=== PATIENT | male | born 1985 | race Caucasian/White ===

== ENCOUNTER 2018-12-19 00:51 | Inpatient (IN) | payer BC, OTHER ==
--- NOTE | 2018-12-19 01:05 | HP ---
COWS - Scale Resting Pulse: 0= DC 80 or Below Sweatin=Flushed/Facial Moisture Restless Observation: 0= Sits Still Pupil Size: 0= Normal to Room Light Bone or Joint Aches: 4=Acute Joint/Muscle Pain Runny Nose/ Eye Tearin= Nasal Congestion GI Upset > 30mins: 2= Nausea/Diarrhea (diarrhea x 10) Tremor Observation: 4= Gross Tremor/Twitching Yawning Observation: 0= None Anxiety or Irritability: 2=Irritable/Anxious Goose Flesh Skin: 3=Piloerection COWS Score: 18 CIWA Score - Admission Criteria OASAS Guidelines: Admission for Medically Managed Detox: Requires at least one of the followin. CIWA greater than 12 2. Seizures within the past 24 hours 3. Delirium tremens within the past 24 hours 4. Hallucinations within the past 24 hours 5. Acute intervention needed for co occurring medical disorder 6. Acute intervention needed for co occurring psychiatric disorder 7. Severe withdrawal that cannot be handled at a lower level of care (continued vomiting, continued diarrhea, abnormal vital signs) requiring intravenous medication and/or fluids 8. Admission ROS [facility] Chief Complaint: Heroin withdrawal symptom Allergies/Adverse Reactions: Allergies Allergy/AdvReac Type Severity Reaction Status Date / Time No Known Allergies Allergy Verified 07/14/18 20:11 History of Present Illness: 33 years old male with a year of heroin dependence is seeking admission to detox. Patient has been in previous detox and reports insignificant period of sobriety. He has medical history of anxiety, depression and bronchial asthma. He denies suicide attempt and suicidal ideation at this time. Exam Limitations: No Limitations - Ebola screening Have you traveled outside of the country in the last 21 days: No Have you had contact with anyone from an Ebola affected area: No Have you been sick,other than usual withdrawal symptoms: No Do you have a fever: No - Review of Systems Constitutional: Chills, Malaise, Night Sweats EENT: reports: No Symptoms Reported, Sinus Pressure Respiratory: reports: No Symptoms reported Cardiac: reports: No Symptoms Reported GI: reports: No Symptoms Reported, Diarrhea, Nausea, Poor Appetite, Poor Fluid Intake, Abdominal cramping : reports: No Symptoms Reported Musculoskeletal: reports: Back Pain Integumentary: reports: Dryness, Flushing Neuro: reports: Headache, Tremors Endocrine: reports: No Symptoms Reported Hematology: reports: No Symptoms Reported Psychiatric: reports: Mood/Affect Appropiate, Orientated x3, Anxious, Depressed Other Systems: Reviewed and Negative Patient History - Patient Medical History Hx Anemia: No Hx Asthma: Yes (Albuterol, Spiriva, Brel) Hx Chronic Obstructive Pulmonary Disease (COPD): No Hx Cancer: No Hx Cardiac Disorders: No Hx Congestive Heart Failure: No Hx Hypertension: No Hx Hypercholesterolemia: No Hx Pacemaker: No HX Cerebrovascular Accident: No Hx Seizures: No Hx Dementia: No Hx Diabetes: No Hx Gastrointestinal Disorders: No Hx Liver Disease: No Hx Genitourinary Disorders: No Hx Sexually Transmitted Disorders: No Hx Renal Disease (ESRD): No Hx Thyroid Disease: No Hx Human Immunodeficiency Virus (HIV): No (2011) Hx Hepatitis C: No Hx Depression: Yes (VYBRID) Hx Suicide Attempt: No Hx Bipolar Disorder: No Hx Schizophrenia: No Other Medical History: ANXIETY - Xanax - Patient Surgical History Past Surgical History: Yes Hx Neurologic Surgery: No Hx Cataract Extraction: No Hx Cardiac Surgery: No Hx Lung Surgery: No Hx Breast Surgery: No Hx Abdominal Surgery: Yes (right inguinal hernia repair at age of 13 years) Hx Appendectomy: No Hx Cholecystectomy: No Hx Genitourinary Surgery: No Hx Section: No Hx Orthopedic Surgery: No Anesthesia Reaction: No - PPD History Previous Implant?: Yes Documented Results: Positive w/proof Implanted On Prior [facility] Admission?: Yes Date: 07/16/18 PPD to be Administered?: No - Reproductive History Patient is a Female of Child Bearing Age (11 -55 yrs old): No (MALE) - Smoking Cessation Smoking history: Current every day smoker Have you smoked in the past 12 months: No Aproximately how many cigarettes per day: 30 If you are a former smoker, when did you quit?: 1 YR Cigars Per Day: 0 Hx Chewing Tobacco Use: No Initiated information on smoking cessation: Yes 'Breaking Loose' booklet given: 12/19/18 Family Disease History - Family Disease History Family Disease History: Other: Father ( alcoholism ), Mother (RA, Crohn' s disease) Admission Physical Exam B[facility] - Physical General Appearance: Yes: Moderate Distress, Anxious HEENTM: Yes: EOMI, Normal ENT Inspection, Normal Voice, [place] Respiratory: Yes: Lungs Clear, Normal Breath Sounds, No Respiratory Distress Neck: Yes: Supple Breast: Yes: Breast Exam Deferred Cardiology: Yes: Regular Rhythm, Regular Rate Abdominal: Yes: Normal Bowel Sounds Genitourinary: Yes: Within Normal Limits Back: Yes: Normal Inspection Musculoskeletal: Yes: Within Normal Limits Extremities: Yes: Tremors Neurological: Yes: Alert, Normal Mood/Affect Integumentary: Yes: Warm - Diagnostic (1) Anxiety Current Visit: Yes Status: Chronic (2) Sedative dependence Current Visit: Yes Status: Acute (3) Seizure Current Visit: Yes Status: Acute (4) Asthma exacerbation Current Visit: Yes Status: Chronic Qualifiers: Asthma severity: moderate Asthma persistence: persistent Qualified Code(s ): J45.41 - Moderate persistent asthma with (acute) exacerbation (5) Asthma Current Visit: Yes Status: Chronic (6) Cocaine dependence Current Visit: No Status: Chronic Qualifiers: Substance use status: uncomplicated Qualified Code(s): F14.20 - Cocaine dependence, uncomplicated (7) Depressive disorder Current Visit: No Status: Chronic (8) Marijuana dependence Current Visit: Yes Status: Chronic (9) Opioid dependence with withdrawal Current Visit: Yes Status: Resolved Cleared for Admission [facility] - Detox or Rehab [facility] Level of Care: Medically Managed Detox Regimen/Protocol: Methadone Claeared for Rehab Admission: No S Breath Alcohol Content Breath Alcohol Content: 0 Vital Signs - Vital Signs Vital Signs Refused: No Temperature: 98.7 F Temperature Source: Oral Pulse Rate: 73 Respiratory Rate: 18 Blood Pressure: 130/93 BP Location: Left Arm Blood Pressure Position: Sitting - Height Height: 5 ft 11 in - Weight Weight: 180 lb Weight Measurement Method: Standing Scale Body Mass Index (BMI): 25.1 - Bowel Function Bowel Movement: Yes Urine Drug Screen - Test Device Lot Number: [id number] Expiration Date: 09/09/20 - Control Is Test Valid: Yes - Results Drug Screen Negative: No Urine Drug Screen Results: THC-Marijuana, OPI-Opiates, BZO-Benzodiazepines Inpatient Rehab Admission - Rehab Decision to Admit Inpatient rehab admission?: No
[2018-12-19] MEDS ORDERED: METHOCARBAMOL 500 MG TABLET PO PRN (01:20)
[2018-12-19] MEDS ORDERED: cloNIDine HCL 0.1 MG TABLET PO PRN ×2 (01:20→02:32)
[2018-12-19] MEDS ORDERED: MAG HYDROX/AL HYDROX/SIMETH 30 ML UNIT-DOSE CUP PO PRN (01:20)
[2018-12-19] MEDS ORDERED: MAGNESIUM CITRATE 300 ML BOTTLE PO PRN (01:20)
[2018-12-19] MEDS ORDERED: MENTHOL/PHENOL 1 EACH UD MM PRN (01:20)
[2018-12-19] MEDS ORDERED: IBUPROFEN 400 MG TABLET (FP) PO PRN (01:20)
[2018-12-19] MEDS ORDERED: NALOXONE HCL 0.4 MG/ML VIAL IVPUSH PRN (01:20)
[2018-12-19] MEDS ORDERED: BISMUTH SUBSALICYLATE 524 MG/30 ML UD PO PRN (01:20)
[2018-12-19] MEDS ORDERED: MAGNESIUM HYDROX 2400MG/30ML ORAL SUSPENSION 30 ML CUP PO PRN (01:20)
[2018-12-19] MEDS ORDERED: ACETAMINOPHEN 325 MG TABLET (FP) PO PRN (01:20)
[2018-12-19] MEDS ORDERED: ALBUTEROL SO4 8 GM HFA INHALER IH PRN (01:24)
[2018-12-19 01:33] VITALS: BMI 25.1
--- NOTE | 2018-12-19 02:31 | HP ---
COWS - Scale Resting Pulse: 0= ID 80 or Below Sweatin=Flushed/Facial Moisture Restless Observation: 0= Sits Still Pupil Size: 0= Normal to Room Light Bone or Joint Aches: 4=Acute Joint/Muscle Pain Runny Nose/ Eye Tearin= Nasal Congestion GI Upset > 30mins: 2= Nausea/Diarrhea (diarrhea x 10) Tremor Observation: 4= Gross Tremor/Twitching Yawning Observation: 0= None Anxiety or Irritability: 2=Irritable/Anxious Goose Flesh Skin: 3=Piloerection COWS Score: 18 CIWA Score - Admission Criteria OASAS Guidelines: Admission for Medically Managed Detox: Requires at least one of the followin. CIWA greater than 12 2. Seizures within the past 24 hours 3. Delirium tremens within the past 24 hours 4. Hallucinations within the past 24 hours 5. Acute intervention needed for co occurring medical disorder 6. Acute intervention needed for co occurring psychiatric disorder 7. Severe withdrawal that cannot be handled at a lower level of care (continued vomiting, continued diarrhea, abnormal vital signs) requiring intravenous medication and/or fluids 8. Admission ROS [facility] Allergies/Adverse Reactions: Allergies Allergy/AdvReac Type Severity Reaction Status Date / Time No Known Allergies Allergy Verified 12/19/18 02:30 - Ebola screening Have you traveled outside of the country in the last 21 days: No Have you had contact with anyone from an Ebola affected area: No Have you been sick,other than usual withdrawal symptoms: No Do you have a fever: No Patient History - Patient Medical History Hx Anemia: No Hx Asthma: Yes (Albuterol, Spiriva, Brel) Hx Chronic Obstructive Pulmonary Disease (COPD): No Hx Cancer: No Hx Cardiac Disorders: No Hx Congestive Heart Failure: No Hx Hypertension: No Hx Hypercholesterolemia: No Hx Pacemaker: No HX Cerebrovascular Accident: No Hx Seizures: No Hx Dementia: No Hx Diabetes: No Hx Gastrointestinal Disorders: No Hx Liver Disease: No Hx Genitourinary Disorders: No Hx Sexually Transmitted Disorders: No Hx Renal Disease (ESRD): No Hx Thyroid Disease: No Hx Human Immunodeficiency Virus (HIV): No (Negative 2011) Hx Hepatitis C: No Hx Depression: Yes (VYBRID) Hx Suicide Attempt: No Hx Bipolar Disorder: No Hx Schizophrenia: No Other Medical History: ANXIETY - Xanax - Patient Surgical History Past Surgical History: Yes Hx Neurologic Surgery: No Hx Cataract Extraction: No Hx Cardiac Surgery: No Hx Lung Surgery: No Hx Breast Surgery: No Hx Abdominal Surgery: Yes (right inguinal hernia repair at age of 13 years) Hx Appendectomy: No Hx Cholecystectomy: No Hx Genitourinary Surgery: No Hx Section: No Hx Orthopedic Surgery: No Anesthesia Reaction: No - PPD History Previous Implant?: Yes Documented Results: Positive w/proof Implanted On Prior [facility] Admission?: Yes Date: 07/16/18 - Smoking Cessation Smoking history: Current every day smoker Have you smoked in the past 12 months: No Aproximately how many cigarettes per day: 30 If you are a former smoker, when did you quit?: 1 YR Cigars Per Day: 0 Hx Chewing Tobacco Use: No Initiated information on smoking cessation: Yes 'Breaking Loose' booklet given: 12/19/18 - Substances Abused Heroin Route: Inhalation Frequency: Daily Amount used: 10 bags Age of first use: 33 Date of Last Use: 12/18/18 Family Disease History - Family Disease History Family Disease History: Other: Father ( alcoholism ), Mother (RA, Crohn' s disease) Admission Physical Exam BHS - Vital Signs Vital Signs: Vital Signs - 24 hr 12/19/18 01:58 Temperature 98.7 F Pulse Rate 73 Respiratory 18 Rate Blood Pressure 130/93 - Diagnostic (1) Anxiety Current Visit: Yes Status: Chronic (2) Sedative dependence Current Visit: Yes Status: Acute (3) Seizure Current Visit: Yes Status: Acute (4) Asthma exacerbation Current Visit: Yes Status: Chronic Qualifiers: Asthma severity: moderate Asthma persistence: persistent Qualified Code(s ): J45.41 - Moderate persistent asthma with (acute) exacerbation (5) Asthma Current Visit: Yes Status: Chronic (6) Cocaine dependence Current Visit: No Status: Chronic Qualifiers: Substance use status: uncomplicated Qualified Code(s): F14.20 - Cocaine dependence, uncomplicated (7) Depressive disorder Current Visit: No Status: Chronic (8) Marijuana dependence Current Visit: Yes Status: Chronic (9) Opioid dependence with withdrawal Current Visit: Yes Status: Resolved BHS Breath Alcohol Content Breath Alcohol Content: 0 Urine Drug Screen - Results Drug Screen Negative: No Urine Drug Screen Results: THC-Marijuana, OPI-Opiates, BZO-Benzodiazepines
[2018-12-19] MEDS ORDERED: METHADONE HCL 10 MG TABLET (FOR DETOX USE ONLY) PO ONE ×3 (02:40→23:00)
[2018-12-19] MEDS: hydrOXYzine PAMOATE 25 MG CAPSULE (FP) PO PRN ×3 (02:48→18:35)
[2018-12-19] MEDS: NICOTINE POLACRILEX 2 MG GUM BUC PRN ×3 (02:50→18:37)
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
[2018-12-19] MEDS: PRENATAL VITAMINS W/ FOLIC ACID TABLET (FP) PO SCH (10:09)
[2018-12-19] MEDS: NICOTINE 14 MG/24 HOURS TOPICAL PATCH TD SCH (10:12)
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
[2018-12-19] MEDS: QUEtiapine FUMARATE 100 MG TABLET (FP) PO SCH (22:11)
[2018-12-19] MEDS: MELATONIN 5 MG TABLETS PO PRN (22:11)
[2018-12-19] MEDS: THIAMINE HCL 100 MG TABLET (FP) PO SCH (22:11)
[2018-12-20] MEDS ORDERED: METHADONE HCL 10 MG TABLET (FOR DETOX USE ONLY) PO ONE (10:00)
[2018-12-20] MEDS ORDERED: METHADONE HCL 5 MG TABLET (FOR DETOX USE ONLY) PO ONE (10:00)
[2018-12-20] MEDS: PRENATAL VITAMINS W/ FOLIC ACID TABLET (FP) PO SCH (10:12)
[2018-12-20] MEDS: NICOTINE 14 MG/24 HOURS TOPICAL PATCH TD SCH (10:14)
[2018-12-20] MEDS: NICOTINE POLACRILEX 2 MG GUM BUC PRN ×2 (10:14→22:20)
[2018-12-20 12:38] LABS: HEMATOCRIT 43.6 % (35.4-49); HEMOGLOBIN 14.5 GM/dL (11.7-16.9); MCH 28.7 pg (25.7-33.7); MCHC 33.3 g/dl (32.0-35.9); MEAN CELL VOLUME 86.2 fl (80-96); MEAN PLT VOLUME 9.6 fl (7.5-11.1); PLATELET COUNT 227 K/MM3 (134-434); RBC 5.05 M/mm3 (4.00-5.60); RDW 14.7 % (11.9-15.9); WHITE BLOOD COUNT 8.5 K/mm3 (4.0-10.0)
[2018-12-20 12:49] LABS: ALBUMIN 3.3 g/dl (3.4-5.0); ALK PHOS 61 U/L (45-117); ANION GAP 3 MMOL/L (8-16); BILIRUBIN,TOTAL 0.2 mg/dL (0.2-1); BLOOD UREA NITROGEN 9 mg/dL (7-18); CALCIUM 8.9 mg/dL (8.5-10.1); CHLORIDE 106 mmol/L (98-107); CO2 30 mmol/L (21-32); CREATININE 1.2 mg/dL (0.55-1.3); GLUCOSE,RANDOM 84 mg/dL (74-106); POTASSIUM 4.5 mmol/L (3.5-5.1); SGOT/AST 15 U/L (15-37); SGPT/ALT 30 U/L (13-61); SODIUM 139 mmol/L (136-145); TOT PROT 6.2 g/dl (6.4-8.2)
--- NOTE | 2018-12-20 16:24 | PN ---
BHS COWS - Scale Resting Pulse: 0= [place] 80 or Below Sweatin= Chills/Flushing Restless Observation: 0= Sits Still Pupil Size: 1= Pupils >than Normal Bone or Joint Aches: 1= Mild Discomfort Runny Nose/ Eye Tearin= Nasal Congestion GI Upset > 30mins: 1= Stomach Cramp Tremor Observation of Outstretched Hands: 1= Tremor [place], Not Seen Yawning Observation: 2= >3x During Session Anxiety or Irritability: 1=Feels Anxious/Irritable Goose Flesh Skin: 0=Smooth Skin COWS Score: 9 BHS Progress Note (SOAP) Subjective: lower lip suture intact denies pain body ache joints hurt tremor sweating able to swallow and chew food Objective: 12/20/18 16:25 Vital Signs Temperature 97.9 F 12/20/18 13:30 Pulse Rate 100 H 12/20/18 13:30 Respiratory Rate 18 12/20/18 13:30 Blood Pressure 125/79 12/20/18 13:30 O2 Sat by Pulse Oximetry (%) Laboratory Last Values WBC 8.5 K/mm3 (4.0-10.0) 12/20/18 07:00 RBC 5.05 M/mm3 (4.00-5.60) 12/20/18 07:00 Hgb 14.5 GM/dL (11.7-16.9) 12/20/18 07:00 Hct 43.6 % (35.4-49) 12/20/18 07:00 MCV 86.2 fl (80-96) 12/20/18 07:00 MCH 28.7 pg (25.7-33.7) 12/20/18 07:00 MCHC 33.3 g/dl (32.0-35.9) 12/20/18 07:00 RDW 14.7 % (11.9-15.9) D 12/20/18 07:00 Plt Count 227 K/MM3 (134-434) 12/20/18 07:00 MPV 9.6 fl (7.5-11.1) 12/20/18 07:00 Sodium 139 mmol/L (136-145) 12/20/18 07:00 Potassium 4.5 mmol/L (3.5-5.1) 12/20/18 07:00 Chloride 106 mmol/L (98-107) 12/20/18 07:00 Carbon Dioxide 30 mmol/L (21-32) 12/20/18 07:00 Anion Gap 3 MMOL/L (8-16) L 12/20/18 07:00 BUN 9 mg/dL (7-18) 12/20/18 07:00 Creatinine 1.2 mg/dL (0.55-1.3) 12/20/18 07:00 Creat Clearance w eGFR > 60 (>60) 12/20/18 07:00 Random Glucose 84 mg/dL (74-106) 12/20/18 07:00 Calcium 8.9 mg/dL (8.5-10.1) 12/20/18 07:00 Total Bilirubin 0.2 mg/dL (0.2-1) 12/20/18 07:00 AST 15 U/L (15-37) 12/20/18 07:00 ALT 30 U/L (13-61) 12/20/18 07:00 Alkaline Phosphatase 61 U/L (45-117) 12/20/18 07:00 Total Protein 6.2 g/dl (6.4-8.2) L 12/20/18 07:00 Albumin 3.3 g/dl (3.4-5.0) L 12/20/18 07:00 RPR Titer Nonreactive (NONREACTIVE) 12/20/18 07:00 HIV 1&2 Antibody Screen Negative 12/19/18 08:30 HIV P24 Antigen Negative 12/19/18 08:30 lab noted Assessment: 12/20/18 16:25 withdrawal sx Plan: continue detox
[2018-12-20] MEDS: hydrOXYzine PAMOATE 25 MG CAPSULE (FP) PO PRN ×2 (16:34→22:19)
[2018-12-20] MEDS: ACETAMINOPHEN 325 MG TABLET (FP) PO PRN (21:05)
[2018-12-20] MEDS ORDERED: traZODone HCL 50 MG TABLET (FP) PO ONE (22:00)
[2018-12-20] MEDS: THIAMINE HCL 100 MG TABLET (FP) PO SCH (22:19)
[2018-12-20] MEDS: QUEtiapine FUMARATE 100 MG TABLET (FP) PO SCH (22:19)
[2018-12-20] MEDS: MELATONIN 5 MG TABLETS PO PRN (22:20)
[2018-12-21] MEDS ORDERED: METHADONE HCL 10 MG TABLET (FOR DETOX USE ONLY) PO ONE ×2 (10:00)
[2018-12-21] MEDS: PRENATAL VITAMINS W/ FOLIC ACID TABLET (FP) PO SCH (10:04)
[2018-12-21] MEDS: NICOTINE 14 MG/24 HOURS TOPICAL PATCH TD SCH (10:04)
[2018-12-21] MEDS: hydrOXYzine PAMOATE 25 MG CAPSULE (FP) PO PRN ×2 (10:06→17:25)
[2018-12-21] MEDS: ACETAMINOPHEN 325 MG TABLET (FP) PO PRN ×2 (10:07→17:26)
--- NOTE | 2018-12-21 16:09 | PN ---
BHS COWS - Scale Resting Pulse: 0= [place] 80 or Below Sweatin= Chills/Flushing Restless Observation: 0= Sits Still Pupil Size: 0= Normal to Room Light Bone or Joint Aches: 1= Mild Discomfort Runny Nose/ Eye Tearin= Nasal Congestion GI Upset > 30mins: 1= Stomach Cramp Tremor Observation of Outstretched Hands: 1= Tremor [place], Not Seen Yawning Observation: 0= None Anxiety or Irritability: 1=Feels Anxious/Irritable Goose Flesh Skin: 0=Smooth Skin COWS Score: 6 BHS Progress Note (SOAP) Subjective: feeling better less body aches mild tremor Objective: 12/21/18 16:09 Vital Signs Temperature 98.1 F 12/21/18 13:06 Pulse Rate 88 12/21/18 13:06 Respiratory Rate 18 12/21/18 13:06 Blood Pressure 136/89 12/21/18 13:06 O2 Sat by Pulse Oximetry (%) Laboratory Last Values WBC 8.5 K/mm3 (4.0-10.0) 12/20/18 07:00 RBC 5.05 M/mm3 (4.00-5.60) 12/20/18 07:00 Hgb 14.5 GM/dL (11.7-16.9) 12/20/18 07:00 Hct 43.6 % (35.4-49) 12/20/18 07:00 MCV 86.2 fl (80-96) 12/20/18 07:00 MCH 28.7 pg (25.7-33.7) 12/20/18 07:00 MCHC 33.3 g/dl (32.0-35.9) 12/20/18 07:00 RDW 14.7 % (11.9-15.9) D 12/20/18 07:00 Plt Count 227 K/MM3 (134-434) 12/20/18 07:00 MPV 9.6 fl (7.5-11.1) 12/20/18 07:00 Sodium 139 mmol/L (136-145) 12/20/18 07:00 Potassium 4.5 mmol/L (3.5-5.1) 12/20/18 07:00 Chloride 106 mmol/L (98-107) 12/20/18 07:00 Carbon Dioxide 30 mmol/L (21-32) 12/20/18 07:00 Anion Gap 3 MMOL/L (8-16) L 12/20/18 07:00 BUN 9 mg/dL (7-18) 12/20/18 07:00 Creatinine 1.2 mg/dL (0.55-1.3) 12/20/18 07:00 Creat Clearance w eGFR > 60 (>60) 12/20/18 07:00 Random Glucose 84 mg/dL (74-106) 12/20/18 07:00 Calcium 8.9 mg/dL (8.5-10.1) 12/20/18 07:00 Total Bilirubin 0.2 mg/dL (0.2-1) 12/20/18 07:00 AST 15 U/L (15-37) 12/20/18 07:00 ALT 30 U/L (13-61) 12/20/18 07:00 Alkaline Phosphatase 61 U/L (45-117) 12/20/18 07:00 Total Protein 6.2 g/dl (6.4-8.2) L 12/20/18 07:00 Albumin 3.3 g/dl (3.4-5.0) L 12/20/18 07:00 RPR Titer Nonreactive (NONREACTIVE) 12/20/18 07:00 HIV 1&2 Antibody Screen Negative 12/19/18 08:30 HIV P24 Antigen Negative 12/19/18 08:30 lab noted Assessment: 12/21/18 16:09 mild withdrawal sx Plan: continue detox
[2018-12-21] MEDS: NICOTINE POLACRILEX 2 MG GUM BUC PRN (17:29)
[2018-12-21] MEDS: QUEtiapine FUMARATE 100 MG TABLET (FP) PO SCH (22:17)
[2018-12-21] MEDS: THIAMINE HCL 100 MG TABLET (FP) PO SCH (22:17)
[2018-12-21] MEDS: MELATONIN 5 MG TABLETS PO PRN (22:17)
[2018-12-22] MEDS ORDERED: METHADONE HCL 5 MG TABLET (FOR DETOX USE ONLY) PO ONE (06:00)
[2018-12-22] MEDS ORDERED: METHADONE HCL 10 MG TABLET (FOR DETOX USE ONLY) PO ONE (10:00)
[2018-12-22] MEDS: NICOTINE 14 MG/24 HOURS TOPICAL PATCH TD SCH (10:18)
[2018-12-22] MEDS: ACETAMINOPHEN 325 MG TABLET (FP) PO PRN (10:18)
[2018-12-22] MEDS: PRENATAL VITAMINS W/ FOLIC ACID TABLET (FP) PO SCH (10:18)
[2018-12-22] MEDS: hydrOXYzine PAMOATE 25 MG CAPSULE (FP) PO PRN (13:47)
[2018-12-22 14:09] VITALS: BP 124/79; PULSE 84; TEMP 98.1
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
[2018-12-23] MEDS ORDERED: METHADONE HCL 5 MG TABLET (FOR DETOX USE ONLY) PO ONE (06:00)
== END 2018-12-22 14:19 | disposition home or self-care (01) | DRG 773 ==
LOC: YASAS 00:51 → Y3N 01:52
PROVIDERS: ADMIT Surgery; ATTEND Surgery
PROC: HZ2ZZZZ Detoxification Services for Substance Abuse Treatment (ICD-10-PCS; principal; 2018-12-19)
DX: F11.23 Opioid dependence with withdrawal (principal); F13.20 Sedative, hypnotic or anxiolytic dependence, uncomplicated; F14.20 Cocaine dependence, uncomplicated; F12.20 Cannabis dependence, uncomplicated; F17.210 Nicotine dependence, cigarettes, uncomplicated; F19.24 Other psychoactive substance dependence with psychoactive substance-induced mood disorder; F32.9 Major depressive disorder, single episode, unspecified; F41.9 Anxiety disorder, unspecified; J45.41 Moderate persistent asthma with (acute) exacerbation; G47.00 Insomnia, unspecified; Z86.69 Personal history of other diseases of the nervous system and sense organs; S01.511A Laceration without foreign body of lip, initial encounter; Y04.0XXA Assault by unarmed brawl or fight, initial encounter; Y93.9 Activity, unspecified; Y92.239 Unspecified place in hospital as the place of occurrence of the external cause
CPT/HCPCS: 36415; 80053; 85027; 86593; 87389; J0735

== ENCOUNTER 2018-12-19 11:15 | Emergency (ER) | payer BC ==
[2018-12-19 11:24] VITALS: BP 116/80; PULSE 93; TEMP 97.6; BMI 25.1
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
[2018-12-19] MEDS ORDERED: DIPHTH,PERTUSS(ACELL),TET 0.5 ML DISP.SYRIN IM ONE ×2 (12:17→12:58)
== END 2018-12-19 15:33 | disposition home or self-care (01) ==
LOC: JER 11:15
PROC: 3E0234Z Introduction of Serum, Toxoid and Vaccine into Muscle, Percutaneous Approach (ICD-10-PCS; principal; 2018-12-19)
PROC: 0CQ1XZZ Repair Lower Lip, External Approach (ICD-10-PCS; 2018-12-19)
DX: S01.511A Laceration without foreign body of lip, initial encounter (principal); K08.89 Other specified disorders of teeth and supporting structures; Y04.2XXA Assault by strike against or bumped into by another person, initial encounter; Y93.89 Activity, other specified; Y92.238 Other place in hospital as the place of occurrence of the external cause; Y99.8 Other external cause status; J45.909 Unspecified asthma, uncomplicated; F41.8 Other specified anxiety disorders; F32.9 Major depressive disorder, single episode, unspecified; F11.10 Opioid abuse, uncomplicated; F14.10 Cocaine abuse, uncomplicated
CPT/HCPCS: 12011; 90471; 90715; 99281-25

== ENCOUNTER 2018-12-23 09:14 | Emergency (ER) | payer BC ==
[2018-12-23 09:38] VITALS: BMI 23.7
[2018-12-23 10:27] LABS: HEMATOCRIT 44.3 % (35.4-49); HEMOGLOBIN 14.8 GM/dL (11.7-16.9); MCH 28.5 pg (25.7-33.7); MCHC 33.5 g/dl (32.0-35.9); MEAN PLT VOLUME 8.5 fl (7.5-11.1); PLATELET COUNT 247 K/MM3 (134-434); RBC 5.21 M/mm3 (4.00-5.60); RDW 14.2 % (11.9-15.9); WHITE BLOOD COUNT 7.9 K/mm3 (4.0-10.0)
--- NOTE | 2018-12-23 10:31 | PDOC ---
History of Present Illness - General Chief Complaint: Overdose Stated Complaint: OVER MEDICATION Time Seen by Provider: 12/23/18 09:57 - History of Present Illness Initial Comments: 12/23/18 10:17 Patient is a 33 y/o male with a history of cocaine abuse, heroin use, and asthma who presents for feelings of palpitations and feeling off. Patient reports he used cocaine last night around 6 pm and thinks he took an extra dose of seroquel and tamazapam. Patient reports he is anxious and feels like he is having palpitations. He also feels like everytime his heart beats he has a feeling of pain. He is mildly diaphoretic. He recently was discharged from detox yesterday after three days of methadone, patient reports he thinks he should have completed five days. Patient denies nausea, vomiting, diarrhea, or shortness of breath. 12/23/18 14:07 Labs WNL, mentation normal, stable for DC Past History - Past Medical History Allergies/Adverse Reactions: Allergies Allergy/AdvReac Type Severity Reaction Status Date / Time No Known Allergies Allergy Verified 12/23/18 09:34 Home Medications: Ambulatory Orders Quetiapine Fumarate [Seroquel] 100 tab HS 12/19/18 Temazepam 7.5 mg PO HS 12/19/18 Vilazodone HCl [Viibryd] 1 each PO DAILY 12/19/18 Albuterol Sulfate Inhaler - [Ventolin HFA Inhaler -] 2 inh PO PRN PRN #1 inhaler 12/21/18 Tiotropium [place] [Spiriva] 1 inh PO DAILY #1 cap.w.dev 12/21/18 Anemia: No Asthma: Yes Cancer: No Cardiac Disorders: No CVA: No COPD: No CHF: No Dementia: No Diabetes: No GI Disorders: No Disorders: No HTN: No Hypercholesterolemia: No Kidney Stones: No Liver Disease: No Psychiatric Problems: Yes (ANXIETY) Seizures: No Thyroid Disease: No - Surgical History Abdominal Surgery: Yes (right inguinal hernia repair at age of 13 years) Appendectomy: No Cardiac Surgery: No Cholecystectomy: No Lung Surgery: No Neurologic Surgery: No Orthopedic Surgery: No - Reproductive History Testicular Surgery: No - Suicide/Smoking/Psychosocial Hx Smoking Status: No Smoking History: Current every day smoker Have you smoked in the past 12 months: Yes Number of Cigarettes Smoked Daily: 20 If you are a former smoker, when did you quit?: 1 YR Cigars Per Day: 0 Information on smoking cessation initiated: No 'Breaking Loose' booklet given: 12/19/18 Hx Alcohol Use: No Drug/Substance Use Hx: Yes (cocaine) Substance Use Type: Cocaine, Heroin, Marijuana Hx Substance Use Treatment: No Review of Systems - Review of Systems Constitutional: Yes: Diaphoresis. No: Chills, Fever Respiratory: No: Cough, Wheezing Cardiac (ROS): Yes: Chest Pain, Palpitations ABD/GI: No: Constipated, Diarrhea, Nausea, Vomiting Neurological: Yes: Headache. No: Seizure *Physical Exam - Vital Signs Last Vital Signs Temp Pulse Resp BP Pulse Ox 98.4 F 120 H 16 118/90 99 12/23/18 09:25 12/23/18 09:25 12/23/18 09:25 12/23/18 09:25 12/23/18 09:25 - Physical Exam Comments: 12/23/18 10:32 GENERAL: A&O x3, no acute distress EYES: PERRLA HEART: taychardic, normal S1 and S2, no murmur LUNGS: CTAL B/L GI: soft non tender EXTREMITIES: non pitting edema SKIN: no rashes or bruises noted Moderate Sedation - Procedure Monitoring Vital Signs: Procedure Monitoring Vital Signs Temperature 98.4 F 12/23/18 09:25 Pulse Rate 120 H 12/23/18 09:25 Respiratory Rate 16 12/23/18 09:25 Blood Pressure 118/90 12/23/18 09:25 O2 Sat by Pulse Oximetry (%) 99 12/23/18 09:25 ED Treatment Course - LABORATORY CBC & Chemistry Diagram: 12/23/18 10:15 12/23/18 10:15 *DC/Admit/Observation/Transfer Diagnosis at time of Disposition: Lethargy - Discharge Dispostion Disposition: HOME - Referrals - Patient Instructions Additional Instructions: We monitored you while you were in the Emergency Department and found that your heart is functioning properly and your blood work is all normal. Please make an appointment to follow up with your primary care physician within one week. Please do not take more then the recommended doses of your medication, taking too much can be detrimental to your health. Return to the Emergency Department if you have any nausea,vomiting, difficulty breathing, chest pain, or headaches. - Post Discharge Activity
[2018-12-23 11:20] LABS: ALBUMIN 3.9 g/dl (3.4-5.0); ALK PHOS 77 U/L (45-117); ANION GAP 5 MMOL/L (8-16); BILIRUBIN,TOTAL 0.3 mg/dL (0.2-1); BLOOD UREA NITROGEN 8 mg/dL (7-18); CALCIUM 9.8 mg/dL (8.5-10.1); CHLORIDE 100 mmol/L (98-107); CO2 32 mmol/L (21-32); CREATININE 1.1 mg/dL (0.55-1.3); GLUCOSE,RANDOM 98 mg/dL (74-106); POTASSIUM 4.3 mmol/L (3.5-5.1); SGOT/AST 37 U/L (15-37); SGPT/ALT 55 U/L (13-61); SODIUM 136 mmol/L (136-145); TOT PROT 7.3 g/dl (6.4-8.2)
--- NOTE | 2018-12-23 12:27 | PDOC ---
Attending Attestation - Medical Decision Making 12/23/18 12:30 Documentation prepared by NEETA Huber, acting as medical officer psychiatry for Brannon Rudd MD. <Jone España - Last Filed: 12/23/18 12:30> - Resident Resident Name: Raissa Wyatt - ED Attending Attestation I have performed the following: I have examined & evaluated the patient, The case was reviewed & discussed with the resident, I agree w/resident's findings & plan, Exceptions are as noted - HPI HPI: 12/23/18 12:24 The patient is a 33 year old male with a past medical history of heroin abuse, cocaine abuse, and asthma here today for evaluation of possible overdose. The patient reports that he got out of detox yesterday after being on methadone for 3 days. He reports that he used cocaine around 6PM. He subsequently had difficulty sleeping and decided to take a double dose of his seroquel and temazepam. This morning, pt reports that he feels very groggy. Also endorses some palpitations. Denies CP/SOB. He also endorses anxiety because his girlfriend recently from an overdose, so he came to ED for evaluation. He denies any SI/HI/AVH. Patient denies headache, lightheadedness. Denies fever, chills. Denies shortness of breath. Denies nausea, vomiting, diarrhea, abdominal pain. Allergies: NKA PCP: none - Physicial Exam PE: 12/23/18 12:26 GENERAL: Awake, alert, and fully oriented, in no acute distress. HEAD: No signs of trauma EYES: PERRLA, EOMI, sclera anicteric, conjunctiva clear ENT: Auricles normal inspection, hearing grossly normal, nares patent, oropharynx clear without exudates. Moist mucosa NECK: Nontender, no stepoffs, Normal ROM, supple, no lymphadenopathy, JVD, or masses LUNGS: Breath sounds equal, clear to auscultation bilaterally. No wheezes, and no crackles HEART: Regular rate and rhythm, normal S1 and S2, no murmurs, rubs or gallops ABDOMEN: Soft, nontender, normoactive bowel sounds. No guarding, no rebound. No masses EXTREMITIES: Normal range of motion, no edema. No clubbing or cyanosis. No cords, erythema, or tenderness NEUROLOGICAL: Cranial nerves II through XII intact. 5/5 strength and sensation in all extremities, Normal speech, normal gait, normal cerebellar function SKIN: Warm, Dry, normal turgor, no rashes or lesions noted. - Medical Decision Making 12/23/18 12:26 33 M with PSA presenting to ED for evaluation after taking 2 pills of seroquel and 2 pills of temazepam. In ED, pt is clinically sober. He denies any attempt to hurt himself. Denies SI/HI/AVH. - Labs - EKG - Monitor in ED 12/23/18 13:05 Labs wnl EKG unremarkable HR now in 80s Pt was seen by SW, who gave pt resources for detox facilities. Pt reports feeling very anxious. States he takes benzos PRN for anxiety. Pt given 5mg PO valium, monitored in ED. Pt is well appearing, with normal vitals. Clinically stable for DC at this time. I discussed the physical exam findings, ancillary test results and final diagnoses with the patient. I answered all of the patient's questions. The patient was satisfied with the care received and felt comfortable with the discharge plan and treatment plan. The patient agrees to follow up with the primary care physician within 24-72 hours. <Brannon Rudd - Last Filed: 12/26/18 07:47>
[2018-12-23 13:26] VITALS: TEMP 98.5
[2018-12-23 13:39] VITALS: BP 125/72; PULSE 98
[2018-12-23] MEDS ORDERED: diazePAM 5 MG TABLET PO ONE (14:50)
[2018-12-23] MEDS ORDERED: diazePAM 5 MG TABLET ONE (15:10)
--- NOTE | 2018-12-24 18:07 | EKG ---
Test Reason : Blood Pressure : / mmHG Vent. Rate : 087 BPM Atrial Rate : 087 BPM P-R Int : 138 ms QRS Dur : 072 ms QT Int : 352 ms P-R-T Axes : 067 054 043 degrees QTc Int : 423 ms NORMAL SINUS RHYTHM EARLY REPOLARIZATION NORMAL ECG WHEN COMPARED WITH ECG OF 14-JUL-2018 20:49, SINUS RHYTHM HAS REPLACED ECTOPIC ATRIAL RHYTHM LEFT POSTERIOR FASCICULAR BLOCK IS NO LONGER PRESENT ST ELEVATION NOW PRESENT IN LATERAL LEADS Confirmed by MD CAROL, LORRI ([id number]) on 12/24/2018 6:07:25 PM Referred By: Confirmed By:LORRI MEDINA MD
== END 2018-12-23 15:53 | disposition home or self-care (01) ==
LOC: JER 09:14
DX: R53.83 Other fatigue (principal); F17.210 Nicotine dependence, cigarettes, uncomplicated; F14.21 Cocaine dependence, in remission; F41.9 Anxiety disorder, unspecified; J45.909 Unspecified asthma, uncomplicated
CPT/HCPCS: 36415; 80053; 84484; 85027; 93005; 93010; 99282-25

== ENCOUNTER 2019-02-19 07:59 | Emergency (ER) | payer BC ==
[2019-02-19 08:14] VITALS: BP 126/65; TEMP 98.1; BMI 24.4
--- NOTE | 2019-02-19 09:06 | PDOC ---
History of Present Illness - General Chief Complaint: Palpitations Stated Complaint: SUBSTANCE ABUSE/RAPID HEART BEAT Time Seen by Provider: 02/19/19 09:05 - History of Present Illness Initial Comments: 02/19/19 09:05 Mr. Field is a 33 yo male w/ pmh of anxiety and cocaine and heroin abuse who presents for evaluation of palpitations after using cocaine this morning. Patient reports he was sexually active with a lady friend overnight and used cocaine with her at that pain. Denies any chest pain however requests evaluation for his palpitations at this time. The patient denies chest pain, shortness of breath, headache and dizziness. Denies fever, chills, nausea, vomit, diarrhea and constipation. Denies dysuria, frequency, urgency and hematuria. Past History - Past Medical History Allergies/Adverse Reactions: Allergies Allergy/AdvReac Type Severity Reaction Status Date / Time No Known Allergies Allergy Verified 02/19/19 08:12 Home Medications: Ambulatory Orders Albuterol Sulfate Inhaler - [Ventolin HFA Inhaler -] 2 inh PO PRN PRN #1 inhaler 12/21/18 Tiotropium [place] [Spiriva] 1 inh PO DAILY #1 cap.w.dev 12/21/18 Fluticasone/Vilanterol [Breo Ellipta 200-25 Mcg INH] 1 each IH ASDIR 02/19/19 Anemia: No Asthma: Yes Cancer: No Cardiac Disorders: No CVA: No COPD: No CHF: No Dementia: No Diabetes: No GI Disorders: No Disorders: No HTN: No Hypercholesterolemia: No Kidney Stones: No Liver Disease: No Psychiatric Problems: Yes (ANXIETY) Seizures: No Thyroid Disease: No - Surgical History Abdominal Surgery: Yes (right inguinal hernia repair at age of 13 years) Appendectomy: No Cardiac Surgery: No Cholecystectomy: No Lung Surgery: No Neurologic Surgery: No Orthopedic Surgery: No - Reproductive History Testicular Surgery: No - Suicide/Smoking/Psychosocial Hx Smoking Status: No Smoking History: Current some day smoker Have you smoked in the past 12 months: Yes Number of Cigarettes Smoked Daily: 20 If you are a former smoker, when did you quit?: 1 YR Cigars Per Day: 0 Information on smoking cessation initiated: No 'Breaking Loose' booklet given: 12/19/18 Hx Alcohol Use: No Drug/Substance Use Hx: Yes (cocaine) Substance Use Type: Cocaine, Heroin, Marijuana Hx Substance Use Treatment: No Review of Systems - Review of Systems Comments:: 02/19/19 09:05 GENERAL/CONSTITUTIONAL: No fever or chills. No weakness. HEAD, EYES, EARS, NOSE AND THROAT: No change in vision. No ear pain or discharge. No sore throat. CARDIOVASCULAR: +Palpitations as described. No chest pain or shortness of breath RESPIRATORY: No cough, wheezing, or hemoptysis. GASTROINTESTINAL: No nausea, vomiting, diarrhea or constipation. GENITOURINARY: No dysuria, frequency, or change in urination. MUSCULOSKELETAL: No joint or muscle swelling or pain. No neck or back pain. SKIN: No rash NEUROLOGIC: No headache, vertigo, loss of consciousness, or change in strength/ sensation. ENDOCRINE: No increased thirst. No abnormal weight change HEMATOLOGIC/LYMPHATIC: No anemia, easy bleeding, or history of blood clots. ALLERGIC/IMMUNOLOGIC: No hives or skin allergy. *Physical Exam - Vital Signs Last Vital Signs Temp Pulse Resp BP Pulse Ox 98.1 F 125 H 18 126/65 99 02/19/19 08:13 02/19/19 08:13 02/19/19 08:13 02/19/19 08:13 02/19/19 08:13 - Physical Exam Comments: 02/19/19 09:06 GENERAL: Awake, alert, and fully oriented, in no acute distress HEAD: No signs of trauma, normocephalic, atraumatic EYES: PERRLA, EOMI, sclera anicteric, conjunctiva clear ENT: Auricles normal inspection, hearing grossly normal, nares patent, oropharynx clear without exudates. Moist mucosa NECK: Normal ROM, supple, no lymphadenopathy, JVD, or masses LUNGS: No distress, speaks full sentences, clear to auscultation bilaterally HEART: +Mild tachycardia, Regular rhythm, normal S1 and S2, no murmurs, rubs or gallops, peripheral pulses normal and equal bilaterally. ABDOMEN: Soft, nontender, normoactive bowel sounds. No guarding, no rebound. No masses EXTREMITIES: Normal inspection, Normal range of motion, no edema. No clubbing or cyanosis. NEUROLOGICAL: Cranial nerves II through XII grossly intact. Normal speech, normal gait, no focal sensorimotor deficits SKIN: Warm, Dry, normal turgor, no rashes or lesions noted. ED Treatment Course - LABORATORY CBC & Chemistry Diagram: 02/19/19 09:04 02/19/19 09:04 Medical Decision Making - Medical Decision Making 02/19/19 10:05 Mr. Field is a 33 yo male w/ pmh as described who presents for evaluation of palpitations in the setting of recent cocaine abuse. Patient given IV hydration and evaluated with EKG and cardiac labs as below. EKG normal sinus w/out concerning features. Cardiac labs non-concerning with negative troponin. No concern for acute process at this time. Patient counseled to stop using cocaine. Discharging to home for further outpatient follow-up as needed. *DC/Admit/Observation/Transfer Diagnosis at time of Disposition: Palpitations - Discharge Dispostion Disposition: HOME - Referrals - Patient Instructions Printed Discharge Instructions: DI for Cocaine Use Disorder Additional Instructions: You were evaluated today in the ER for your palpitations. We performed EKG and laboratory analysis with concerning findings. Please follow-up with primary care provider for further evaluation. Return to ER if any fever, chills, pain, or other concerning symptoms. - Post Discharge Activity
[2019-02-19] MEDS ORDERED: SODIUM CHLORIDE 1,000 ML IV STA (09:13)
[2019-02-19 09:39] LABS: BASO % 0.7 % (0-2.0); EOS % 1.2 % (0-4.5); HEMATOCRIT 42.3 % (35.4-49); HEMOGLOBIN 13.9 GM/dL (11.7-16.9); LYMPH % 32.5 % (8-40); MCH 27.9 pg (25.7-33.7); MCHC 32.8 g/dl (32.0-35.9); MEAN PLT VOLUME 9.1 fl (7.5-11.1); MONO % 5.8 % (3.8-10.2); NEUT % 59.8 % (42.8-82.8); PLATELET COUNT 224 K/MM3 (134-434); RBC 4.98 M/mm3 (4.00-5.60); RDW 14.1 % (11.9-15.9); WHITE BLOOD COUNT 9.2 K/mm3 (4.0-10.0)
--- NOTE | 2019-02-19 09:49 | PDOC ---
Documentation entered by Jone España SCRIBE, acting as scribe for Sissy Garcia MD. Sissy Garcia MD: This documentation has been prepared by the Taco barragan Daniel, SCRIBE, under my direction and personally reviewed by me in its entirety. I confirm that the documentation accurately reflects all work, treatment, procedures, and medical decision making performed by me. Attending Attestation - Resident Resident Name: MendyWeroSunny - ED Attending Attestation I have performed the following: I have examined & evaluated the patient, The case was reviewed & discussed with the resident, I agree w/resident's findings & plan, Exceptions are as noted - HPI HPI: 02/19/19 09:36 The patient is a 33 year old male with a past medical history of anxiety and cocaine and heroin abuse here today for evaluation of palpitations. The patient reports that he used cocaine last night when he was sex with his partner. He reports waking up with palpitations today. He presented to the ED for similar sxs in the past after using cocaine. He has been drinking chamomile tea and feels better at this time Patient denies headache, lightheadedness, focal weakness/numbness. Denies fever , chills. Denies chest pain, shortness of breath. Denies nausea, vomiting, diarrhea, abdominal pain. Allergies: NKA - Physicial Exam PE: 02/19/19 09:43 GENERAL: Awake, alert, and fully oriented, in no acute distress HEAD: No signs of trauma EYES: PERRLA, EOMI, sclera anicteric, conjunctiva clear ENT: Auricles normal inspection, hearing grossly normal, nares patent, oropharynx clear without exudates. Moist mucosa NECK: Normal ROM, supple, no lymphadenopathy, JVD, or masses LUNGS: Breath sounds equal, clear to auscultation bilaterally. No wheezes, and no crackles HEART: Regular rate and rhythm, normal S1 and S2, no murmurs, rubs or gallops ABDOMEN: Soft, nontender, normoactive bowel sounds. No guarding, no rebound. No masses EXTREMITIES: Normal range of motion, no edema. No clubbing or cyanosis. No cords, erythema, or tenderness NEUROLOGICAL: Normal speech, cranial nerves intact, 5/5 strength in all 4 extremities, normal sensation to light touch in all 4 extremities, normal cerebellar exam, normal gait, normal tone SKIN: Warm, Dry, normal turgor, no rashes or lesions noted. - Medical Decision Making 02/19/19 09:45 33yo M hx PSA presents to the ED with palpitations after cocaine use. Initial vitals with tachycardia but on recheck, HR is in 70s. Exam wnl Likely had palpiations 2/2 cocaine use. EKG non ischemic, no arrhythmias. Plan to check labs, will give fluids, reassess. Heart Score/ECG Review #1 02/19/19 09:44 Twelve-lead EKG was performed and reviewed by me. Normal sinus rhythm, rate 77. Normal axis and intervals. No ST elevations or T-wave inversions.
[2019-02-19 10:04] LABS: ALBUMIN 4.1 g/dl (3.4-5.0); ALK PHOS 64 U/L (45-117); ANION GAP 6 MMOL/L (8-16); BILIRUBIN,TOTAL 0.3 mg/dL (0.2-1); BLOOD UREA NITROGEN 10 mg/dL (7-18); CALCIUM 9.3 mg/dL (8.5-10.1); CHLORIDE 108 mmol/L (98-107); CO2 27 mmol/L (21-32); CREATININE 1.1 mg/dL (0.55-1.3); GLUCOSE,RANDOM 125 mg/dL (74-106); POTASSIUM 3.9 mmol/L (3.5-5.1); SGOT/AST 18 U/L (15-37); SGPT/ALT 36 U/L (13-61); SODIUM 141 mmol/L (136-145); TOT PROT 6.8 g/dl (6.4-8.2)
[2019-02-19 10:07] VITALS: PULSE 77
--- NOTE | 2019-02-20 09:58 | EKG ---
Test Reason : Blood Pressure : / mmHG Vent. Rate : 077 BPM Atrial Rate : 077 BPM P-R Int : 140 ms QRS Dur : 072 ms QT Int : 386 ms P-R-T Axes : 077 072 061 degrees QTc Int : 436 ms NORMAL SINUS RHYTHM NORMAL ECG WHEN COMPARED WITH ECG OF 23-DEC-2018 10:04, NO SIGNIFICANT CHANGE WAS FOUND Confirmed by RONNI ONEAL MD ([id number]) on 02/20/2019 9:58:03 AM Referred By: Confirmed By:RONNI ONEAL MD
== END 2019-02-19 10:13 | disposition home or self-care (01) ==
LOC: JER 07:59
PROC: 3E0337Z Introduction of Electrolytic and Water Balance Substance into Peripheral Vein, Percutaneous Approach (ICD-10-PCS; principal; 2019-02-19)
DX: R00.2 Palpitations (principal); F14.10 Cocaine abuse, uncomplicated; F41.9 Anxiety disorder, unspecified; F17.210 Nicotine dependence, cigarettes, uncomplicated
CPT/HCPCS: 36415; 80053; 82550; 82553; 84484; 85025; 93005; 93010; 96360; 99283-25; J7030

== ENCOUNTER 2019-05-18 23:17 | Emergency (ER) | payer BC | END 2019-05-19 01:13 | disposition home or self-care (01) | LOC: JER 23:17 ==

== ENCOUNTER 2019-07-12 04:11 | Emergency (ER) | payer BC, OTHER ==
[2019-07-12 04:43] VITALS: BMI 23.6
--- NOTE | 2019-07-12 04:57 | PDOC ---
*Physical Exam - Vital Signs Last Vital Signs Temp Pulse Resp BP Pulse Ox 98.1 F 70 17 114/74 98 07/12/19 04:25 07/12/19 04:25 07/12/19 04:25 07/12/19 04:25 07/12/19 04:25 Medical Decision Making - Medical Decision Making 07/12/19 04:57 Patient seen by the advanced practice provider under my direct supervision. Ancillary testing reviewed as necessary. I agree with plan as outlined by the advanced practice provider. Discharge - Discharge Information Problems reviewed: Yes Clinical Impression/Diagnosis: Bronchitis Condition: Stable Disposition: HOME - Additional Discharge Information Prescriptions: Albuterol 0.083% Nebulizer Rhoda [Ventolin 0.083% Nebulizer Soln -] 1 neb NEB Q4H PRN #25 vial PRN Reason: Asthma Azithromycin [Zithromax 250mg Tablets -] 250 mg PO UTDICT #6 tab predniSONE [Deltasone -] 40 mg PO DAILY #8 tablet - Follow up/Referral - Patient Discharge Instructions Patient Printed Discharge Instructions: DI for Acute Bronchitis Additional Instructions: Drink plenty of fluids Take ibuprofen every 6 hours as needed for pain or fever use albuterol every 4 hours as needed for wheezing take prednisone starting tomorrow. take azithromycin as prescribed. Additional Instructions: * Please call your personal physician to report your Emergency Department visit and to report your progress, if any. * If there is no improvement in symptoms in 2 days call your physician. * Return to the Emergency Department for any worsening symptoms. - Post Discharge Activity Work/Back to School Note: Back to Work
[2019-07-12] MEDS ORDERED: predniSONE 20 MG TABLET (UD) PO ONE (05:19)
[2019-07-12] MEDS ORDERED: ALBUTEROL SO4 2.5/IPRATROPIUM 0.5 INH SOL 3 ML VIAL.NEB. NEB ONE ×2 (05:19→05:28)
--- NOTE | 2019-07-12 05:27 | PDOC ---
History of Present Illness - General Chief Complaint: Cold Symptoms Stated Complaint: CHEST TIGHTNESS Time Seen by Provider: 07/12/19 04:54 History Source: Patient - History of Present Illness Initial Comments: 07/12/19 05:21 34 year old male c/o chest tightness, bodyaches, productive cough x 2 days. patient reports that he is a smoker quit a day ago. denies fever/ chills. denies NVD, abdominal pain PMHX: asthma ( admissions to ICU, 1 intubation as child.) Past History - Past Medical History Allergies/Adverse Reactions: Allergies Allergy/AdvReac Type Severity Reaction Status Date / Time No Known Allergies Allergy Verified 07/12/19 04:22 Home Medications: Ambulatory Orders Albuterol Sulfate Inhaler - [Ventolin HFA Inhaler -] 2 inh PO PRN PRN #1 inhaler 12/21/18 Tiotropium [place] [Spiriva] 1 inh PO DAILY #1 cap.w.dev 12/21/18 Fluticasone/Vilanterol [Breo Ellipta 200-25 Mcg INH] 1 each IH ASDIR 02/19/19 Albuterol 0.083% Nebulizer [place] [Ventolin 0.083% Nebulizer Soln -] 1 neb NEB Q4H PRN #25 vial 07/12/19 Azithromycin [Zithromax 250mg Tablets -] 250 mg PO UTDICT #6 tab 07/12/19 predniSONE [Deltasone -] 40 mg PO DAILY #8 tablet 07/12/19 Anemia: No Asthma: Yes Cancer: No Cardiac Disorders: No CVA: No COPD: No CHF: No Dementia: No Diabetes: No GI Disorders: No Disorders: No HTN: No Hypercholesterolemia: No Kidney Stones: No Liver Disease: No Psychiatric Problems: Yes (ANXIETY) Seizures: No Thyroid Disease: No - Surgical History Abdominal Surgery: Yes (right inguinal hernia repair at age of 13 years) Appendectomy: No Cardiac Surgery: No Cholecystectomy: No Lung Surgery: No Neurologic Surgery: No Orthopedic Surgery: No - Reproductive History Testicular Surgery: No - Immunization History Immunization Up to Date: Yes - Psycho Social/Smoking Cessation Hx Smoking Status: No Smoking History: Current every day smoker Have you smoked in the past 12 months: Yes Number of Cigarettes Smoked Daily: 20 If you are a former smoker, when did you quit?: 1 YR Cigars Per Day: 0 Information on smoking cessation initiated: Yes 'Breaking Loose' booklet given: 12/19/18 Hx Alcohol Use: Yes Drug/Substance Use Hx: No Substance Use Type: Cocaine, Heroin, Marijuana Hx Substance Use Treatment: No Respiratory Specific PMHX - Complaint Specific PMHX TB (Tuberculosis): No Review of Systems - Review of Systems Able to Perform ROS?: Yes Is the patient limited Urdu proficient: No Constitutional: Yes: Other (bodyaches). No: Symptoms Reported, See HPI, Chills , Diaphoresis, Fever, Loss of Appetite, Malaise, Night Sweats, Weakness, Weight Stable, Unintentional Wgt. Loss, Unexplained wgt Loss HEENTM: Yes: Nose Congestion Respiratory: Yes: Cough. No: Symptoms reported, See HPI, Orthopnea, Shortness of Breath, SOB with Exertion, SOB at Rest, Stridor, Wheezing, Productive cough, Hemoptysis, Other Cardiac (ROS): No: Symptoms Reported, See HPI, Chest Pain, Edema, Irregular Heart Rate, Lightheadedness, Palpitations, Syncope, Chest Tightness, Other ABD/GI: No: Symptoms Reported, See HPI, Abdominal Distended, Abd. Pain w/ defecation, Blood Streaked Bowels, Constipated, Diarrhea, Difficulty Swallowing , Nausea, Poor Appetite, Poor Fluid Intake, Rectal Bleeding, Vomiting, Indigestion, Abdominal cramping, Tarry Stools, Other *Physical Exam - Vital Signs Last Vital Signs Temp Pulse Resp BP Pulse Ox 98.1 F 70 17 114/74 98 07/12/19 04:25 07/12/19 04:25 07/12/19 04:25 07/12/19 04:25 07/12/19 04:25 - Physical Exam General Appearance: Yes: Appropriately Dressed Respiratory/Chest: positive: Lungs Clear, Normal Breath Sounds. negative: Chest Tender Cardiovascular: positive: Regular Rhythm, Regular Rate Gastrointestinal/Abdominal: positive: Normal Bowel Sounds, Soft. negative: Tender Extremity: positive: Normal Capillary Refill, Normal Inspection, Normal Range of Motion Integumentary: positive: Normal Color, Dry, Warm Neurologic: positive: Fully Oriented, Alert, Normal Mood/Affect ED Treatment Course - RADIOLOGY Radiology Studies Ordered: Category Date Time Status CHEST PA & LAT [RAD] Stat Radiology 07/12/19 05:17 Ordered ED Progress Note - Progress Note Progress Note: 07/12/19 05:27 A: bronchitis P: chest xray duoneb x 1 prednisone will prescribe azithromycin Discharge - Discharge Information Problems reviewed: Yes Clinical Impression/Diagnosis: Bronchitis - Additional Discharge Information Prescriptions: Albuterol 0.083% Nebulizer [place] [Ventolin 0.083% Nebulizer Soln -] 1 neb NEB Q4H PRN #25 vial PRN Reason: Asthma Azithromycin [Zithromax 250mg Tablets -] 250 mg PO UTDICT #6 tab predniSONE [Deltasone -] 40 mg PO DAILY #8 tablet - Follow up/Referral - Patient Discharge Instructions Patient Printed Discharge Instructions: DI for Acute Bronchitis Additional Instructions: Drink plenty of fluids Take ibuprofen every 6 hours as needed for pain or fever use albuterol every 4 hours as needed for wheezing take prednisone starting tomorrow. take azithromycin as prescribed. Additional Instructions: * Please call your personal physician to report your Emergency Department visit and to report your progress, if any. * If there is no improvement in symptoms in 2 days call your physician. * Return to the Emergency Department for any worsening symptoms. - Post Discharge Activity Work/Back to School Note: Back to Work
[2019-07-12] MEDS ORDERED: predniSONE 20 MG TABLET (UD) ONE (05:28)
[2019-07-12 05:59] VITALS: BP 142/75; PULSE 60; TEMP 98.6
--- NOTE | 2019-07-12 11:31 | EKG ---
Test Reason : Blood Pressure : / mmHG Vent. Rate : 060 BPM Atrial Rate : 060 BPM P-R Int : 142 ms QRS Dur : 082 ms QT Int : 394 ms P-R-T Axes : 075 068 060 degrees QTc Int : 394 ms NORMAL SINUS RHYTHM WITH SINUS ARRHYTHMIA ST ELEVATION, CONSIDER EARLY REPOLARIZATION BORDERLINE ECG WHEN COMPARED WITH ECG OF 19-FEB-2019 09:07, NO SIGNIFICANT CHANGE WAS FOUND Confirmed by MEAGAN MONROY, DANNA ([id number]) on 07/12/2019 11:30:30 AM Referred By: Confirmed By:DANNA RHODES MD
== END 2019-07-12 05:50 | disposition home or self-care (01) ==
LOC: JER 04:11
PROC: 3E0F7GC Introduction of Other Therapeutic Substance into Respiratory Tract, Via Natural or Artificial Opening (ICD-10-PCS; principal; 2019-07-12)
DX: J40 Bronchitis, not specified as acute or chronic (principal); F17.210 Nicotine dependence, cigarettes, uncomplicated; F41.9 Anxiety disorder, unspecified
CPT/HCPCS: 71046-TC-FY; 93005; 93010; 94640; 99283-25

== ENCOUNTER 2019-07-12 20:02 | Emergency (ER) | payer BC, OTHER ==
--- NOTE | 2019-07-12 20:08 | PDOC ---
Rapid Medical Evaluation Time Seen by Provider: 07/12/19 20:06 Medical Evaluation: Allergies Allergy/AdvReac Type Severity Reaction Status Date / Time No Known Allergies Allergy Verified 07/12/19 04:22 07/12/19 20:06 CC: "I have asthma." PE: end expiratory wheezing Orders: nebs Patient will proceed to ER for further evaluation. Discharge Disposition - Diagnosis Asthma - Referrals - Patient Instructions - Post Discharge Activity
[2019-07-12 20:10] VITALS: BP 138/92; PULSE 100; TEMP 98.9; BMI 23.6
[2019-07-12] MEDS ORDERED: DEXAMETHASONE LIQUID 0.5 MG/5 ML PO ONE (20:28)
[2019-07-12] MEDS ORDERED: AZITHROMYCIN 500 MG TABLET PO ONE (20:30)
--- NOTE | 2019-07-12 20:32 | PDOC ---
History of Present Illness - General Chief Complaint: Asthma Stated Complaint: ASTHMA/WHEEZING Time Seen by Provider: 07/12/19 20:06 - History of Present Illness Initial Comments: 07/12/19 20:30 34-year-old male with a past medical history of asthma presents for evaluation of asthma exacerbation. He was seen in the emergency room earlier this morning however he was unable to pick up attendant his prescriptions. Past History - Past Medical History Allergies/Adverse Reactions: Allergies Allergy/AdvReac Type Severity Reaction Status Date / Time No Known Allergies Allergy Verified 07/12/19 20:10 Home Medications: Ambulatory Orders Albuterol Sulfate Inhaler - [Ventolin HFA Inhaler -] 2 inh PO PRN PRN #1 inhaler 12/21/18 Tiotropium [place] [Spiriva] 1 inh PO DAILY #1 cap.w.dev 12/21/18 Fluticasone/Vilanterol [Breo Ellipta 200-25 Mcg INH] 1 each IH ASDIR 02/19/19 Albuterol 0.083% Nebulizer [place] [Ventolin 0.083% Nebulizer Soln -] 1 neb NEB Q4H PRN #25 vial 07/12/19 Azithromycin [Zithromax 250mg Tablets -] 250 mg PO UTDICT #6 tab 07/12/19 predniSONE [Deltasone -] 40 mg PO DAILY #8 tablet 07/12/19 Anemia: No Asthma: Yes Cancer: No Cardiac Disorders: No CVA: No COPD: No CHF: No Dementia: No Diabetes: No GI Disorders: No Disorders: No HTN: No Hypercholesterolemia: No Kidney Stones: No Liver Disease: No Psychiatric Problems: Yes (ANXIETY) Seizures: No Thyroid Disease: No - Surgical History Abdominal Surgery: Yes (right inguinal hernia repair at age of 13 years) Appendectomy: No Cardiac Surgery: No Cholecystectomy: No Lung Surgery: No Neurologic Surgery: No Orthopedic Surgery: No - Reproductive History Testicular Surgery: No - Immunization History Immunization Up to Date: Yes - Psycho Social/Smoking Cessation Hx Smoking Status: No Smoking History: Former smoker Have you smoked in the past 12 months: Yes Number of Cigarettes Smoked Daily: 20 If you are a former smoker, when did you quit?: 1 YR Cigars Per Day: 0 Information on smoking cessation initiated: No 'Breaking Loose' booklet given: 12/19/18 Hx Alcohol Use: No Drug/Substance Use Hx: No Substance Use Type: Cocaine, Heroin, Marijuana Hx Substance Use Treatment: No Review of Systems - Review of Systems Respiratory: Yes: Cough, Wheezing *Physical Exam - Vital Signs Last Vital Signs Temp Pulse Resp BP Pulse Ox 98.9 F 100 H 21 H 138/92 98 07/12/19 20:08 07/12/19 20:08 07/12/19 20:08 07/12/19 20:08 07/12/19 20:08 - Physical Exam Comments: 07/12/19 20:31 HEAD: NC/AT EYES: Conjuntiva clear Ears: Canals and TM's normal NOSE: No d/c THROAT: Moist mucous membrances, oral pharanx clear, uvula midline NECK: Supple without adenopathy CARDIAC: S1 S2 LUNGS: CTA no wheezing but prolonged expiration left base ABDOMEN: Soft NT ND MS: Full ROM in all joints without edema NEUROLOGIC: No gross sensory or motor deficits, NVID SKIN: Normal color and temperature no lesions or rashes Medical Decision Making - Medical Decision Making 07/12/19 20:31 Because the patient is unable to pick up attendant his prescription I will give him an initial dose of Zithromax here. He states he will be able to pick it up tomorrow at some point. I will treat him with Decadron I have advised him on the use of the prescription of Zithromax he is about to pick up attendant and to start from day to and take it for the next 4 days. He should have 1 pill left over if he takes this properly. Have also instructed him not to take the prednisone as I will give him a dose of long-acting steroid here. I will give him a treatment now as well. 07/12/19 21:30 pt requesting a flu swab he now says his symptoms have only been for a day (24) hours after he was educated on why flu swab was not done initially Discharge - Discharge Information Problems reviewed: Yes Clinical Impression/Diagnosis: Asthma Condition: Stable Disposition: HOME - Admission No - Follow up/Referral - Patient Discharge Instructions Patient Printed Discharge Instructions: Asthma -- Adult Additional Instructions: Return to the emergency room for worsening symptoms. Again, please do not take the prednisone. And start the Z-Wolfgang that you are prescribed this morning from the second day going forward you should have 1 pill left over when he finished the course. Please follow-up with your primary care physician in 1 to 2 days for further evaluation and treatment options. Influenza swab was negative today. - Post Discharge Activity
[2019-07-12] MEDS ORDERED: AZITHROMYCIN 250 MG TABLET ONE (20:33)
[2019-07-12] MEDS ORDERED: DEXAMETHASONE SOD PHOSPHATE 10 MG/1 ML VIAL ONE (20:33)
[2019-07-12] MEDS ORDERED: ALBUTEROL SO4 2.5/IPRATROPIUM 0.5 INH SOL 3 ML VIAL.NEB. NEB ONE ×2 (20:33→20:57)
[2019-07-12] MEDS: ALBUTEROL SO4 2.5/IPRATROPIUM 0.5 INH SOL 3 ML VIAL.NEB. NEB SCH ×2 (20:40→20:58)
== END 2019-07-12 22:06 | disposition home or self-care (01) ==
LOC: JERFT 20:02
PROC: 3E0F7GC Introduction of Other Therapeutic Substance into Respiratory Tract, Via Natural or Artificial Opening (ICD-10-PCS; principal; 2019-07-12)
PROC: 3E0F7GC Introduction of Other Therapeutic Substance into Respiratory Tract, Via Natural or Artificial Opening (ICD-10-PCS; 2019-07-12)
DX: J45.909 Unspecified asthma, uncomplicated (principal); Z87.891 Personal history of nicotine dependence; F41.9 Anxiety disorder, unspecified
CPT/HCPCS: 87804; 94640; 99281-25

== ENCOUNTER 2021-03-02 01:18 | Emergency (ER) | payer BC ==
[2021-03-02 01:28] VITALS: BP 130/90; PULSE 85; TEMP 98.6; BMI 23.0
[2021-03-02] MEDS ORDERED: ACETAMINOPHEN 500 MG TABLET (FP) PO ONE (01:40)
[2021-03-02] MEDS ORDERED: ACETAMINOPHEN 500 MG TABLET (FP) ONE (02:48)
== END 2021-03-02 02:53 | disposition home or self-care (01) ==
LOC: JER 01:18
DX: M79.672 Pain in left foot (principal)
CPT/HCPCS: 73610-TC-LT-FY; 73630-TC-LT; 99283-25

== ENCOUNTER 2022-04-09 11:23 | Emergency (ER) | payer BC, OTHER ==
[2022-04-09 11:49] VITALS: BP 119/73; PULSE 105; TEMP 100.4; BMI 23.6
[2022-04-09] MEDS ORDERED: SODIUM CHLORIDE 0.9% 500 ML INFUS.BAG IV ONE (14:29)
[2022-04-09] MEDS ORDERED: ACETAMINOPHEN 500 MG TABLET (FP) PO ONE (14:30)
[2022-04-09] MEDS ORDERED: KETOROLAC TROMETHAMINE 30 MG/1 ML VIAL ONE (14:52)
[2022-04-09 15:22] LABS: BASO % 0.3 % (0-2.0); EOS % 0.7 % (0-4.5); HEMATOCRIT 45.6 % (35.4-49); HEMOGLOBIN 15.1 GM/dL (11.7-16.9); MCH 27.1 pg (25.7-33.7); MCHC 33.1 g/dl (32.0-35.9); MEAN CELL VOLUME 81.9 fl (80-96); MEAN PLT VOLUME 8.6 fl (7.5-11.1); MONO % 8.7 % (3.8-10.2); NEUT % 84.3 % (42.8-82.8); PLATELET COUNT 202 10^3/uL (134-434); RBC 5.58 M/mm3 (4.00-5.60); RDW 14.1 % (11.9-15.9); WHITE BLOOD COUNT 8.9 K/mm3 (4.0-10.0)
[2022-04-09 15:53] LABS: CHLORIDE 106 mmol/L (98-107); SODIUM 139 mmol/L (136-145)
[2022-04-09 15:58] LABS: ALBUMIN 4.4 g/dl (3.4-5.0); ANION GAP 10 MMOL/L (8-16); CALCIUM 9.5 mg/dL (8.5-10.1); CO2 23 mmol/L (21-32); GLUCOSE,RANDOM 95 mg/dL (74-106)
[2022-04-09 16:01] LABS: CREATININE 1.3 mg/dL (0.55-1.3); SGOT/AST 16 U/L (15-37); SGPT/ALT 27 U/L (13-61)
[2022-04-09 16:02] LABS: TOT PROT 7.4 g/dl (6.4-8.2)
[2022-04-09 16:03] LABS: BILIRUBIN,TOTAL 0.6 mg/dL (0.2-1)
[2022-04-09 16:04] LABS: ALK PHOS 57 U/L (45-117)
== END 2022-04-09 19:26 | disposition home or self-care (01) ==
LOC: JER 11:23
PROC: 3E0233Z Introduction of Anti-inflammatory into Muscle, Percutaneous Approach (ICD-10-PCS; principal; 2022-04-09)
DX: U07.1 COVID-19 (principal)
CPT/HCPCS: 0241U-QW; 36415; 80053; 82550; 82553; 85025; 99284-25

== ENCOUNTER 2024-03-16 02:25 | Emergency (ER) | payer OTHER ==
[2024-03-16 02:34] VITALS: BP 123/83; PULSE 80; RESP 18; TEMP 98; BMI 22.2
[2024-03-16] MEDS ORDERED: ACETAMINOPHEN 325 MG TABLET (FP) ONE (04:47)
[2024-03-16] MEDS: ACETAMINOPHEN 325 MG TABLET (FP) PO ONE (04:56)
== END 2024-03-16 04:57 | disposition home or self-care (01) ==
LOC: JER 02:25
DX: M54.2 Cervicalgia (principal); R51.9 Headache, unspecified; R11.10 Vomiting, unspecified; V49.40XA Driver injured in collision with unspecified motor vehicles in traffic accident, initial encounter
CPT/HCPCS: 70450-TC; 72125-TC; 99284-25

== ENCOUNTER 2024-04-29 18:59 | Emergency (ER) | payer OTHER ==
[2024-04-29 19:18] VITALS: BP 160/99; PULSE 100; RESP 20; TEMP 98.8; BMI 26.6
[2024-04-29] MEDS: SODIUM CHLORIDE 1,000 ML IV STA (20:41)
[2024-04-29 20:47] LABS: BASO % 0.9 % (0-2.0); EOS % 1.5 % (0-4.5); HEMATOCRIT 43.2 % (35.4-49); HEMOGLOBIN 14.1 GM/dL (11.7-16.9); LYMPH % 37.2 % (8-40); MCH 27.7 pg (25.7-33.7); MCHC 32.7 g/dl (32.0-35.9); MEAN CELL VOLUME 84.5 fl (80-96); MEAN PLT VOLUME 8.2 fl (7.5-11.1); MONO % 7.4 % (3.8-10.2); PLATELET COUNT 262 10^3/uL (134-434); RBC 5.11 M/mm3 (4.00-5.60); RDW 13.5 % (11.9-15.9); WHITE BLOOD COUNT 8.1 K/mm3 (4.0-10.0)
[2024-04-29 20:49] LABS: EPI CELLS 2 /uL (0-25.1); HYALINE CASTS 0 /uL (0-3.1); URINE APPEARANCE CLEAR; URINE BACTERIA 2 /uL (0-1359); URINE BILIRUBIN NEGATIVE (NEGATIVE); URINE COLOR ORANGE; URINE GLUCOSE (UA) NEGATIVE (NEGATIVE); URINE KETONE NEGATIVE (NEGATIVE); URINE LEUK ESTERASE NEGATIVE (NEGATIVE); URINE NITRITE NEGATIVE (NEGATIVE); URINE PROTEIN TRACE (NEGATIVE); URINE RBC 2148 /uL (0-23.9); URINE UROBILINOGEN 0.2 mg/dL (0.2-1.0); URINE WBC 8 /uL (0-25.8)
[2024-04-29 20:53] LABS: OPIATES, URI NEGATIVE (NEGATIVE); URINE AMPHETAMINES NEGATIVE (NEGATIVE); URINE BARBITURATES NEGATIVE (NEGATIVE)
[2024-04-29 20:54] LABS: METHADONE, UR NEGATIVE (NEGATIVE); PHENCYCLIDINE,URINE NEGATIVE (NEGATIVE); URINE BENZODIAZEPINES NEGATIVE (NEGATIVE)
[2024-04-29 20:55] LABS: COCAINE, UR POSITIVE (NEGATIVE)
[2024-04-29 21:02] LABS: POTASSIUM 4.4 mmol/L (3.5-5.1)
[2024-04-29 21:04] LABS: CALCIUM 9.4 mg/dL (8.5-10.1)
[2024-04-29 21:05] LABS: ALBUMIN 4.2 g/dl (3.4-5.0); BLOOD UREA NITROGEN 15.1 mg/dL (7-18)
[2024-04-29 21:08] LABS: CREATININE 1.4 mg/dL (0.55-1.3)
[2024-04-29 21:10] LABS: BILIRUBIN,TOTAL 0.4 mg/dL (0.2-1); TOT PROT 7.8 g/dl (6.4-8.2)
== END 2024-04-29 23:00 | disposition home or self-care (01) ==
LOC: JER 18:59
PROC: 3E0337Z Introduction of Electrolytic and Water Balance Substance into Peripheral Vein, Percutaneous Approach (ICD-10-PCS; principal; 2024-04-29)
DX: R31.29 Other microscopic hematuria (principal); F14.90 Cocaine use, unspecified, uncomplicated; R35.0 Frequency of micturition
CPT/HCPCS: 36415; 74176-TC; 80053; 80307; 81003; 85025; 93005; 93010; 99284-25

== ENCOUNTER 2024-05-01 16:01 | Emergency (ER) | payer OTHER ==
[2024-05-01 16:10] VITALS: BP 124/80; PULSE 95; RESP 18; TEMP 98.8; BMI 23.4
[2024-05-01 17:57] LABS: BASO % 0.5 % (0-2.0); EOS % 2.5 % (0-4.5); HEMATOCRIT 44.4 % (35.4-49); HEMOGLOBIN 14.9 GM/dL (11.7-16.9); LYMPH % 35.9 % (8-40); MCH 27.8 pg (25.7-33.7); MCHC 33.5 g/dl (32.0-35.9); MEAN PLT VOLUME 8.3 fl (7.5-11.1); MONO % 5.4 % (3.8-10.2); NEUT % 55.7 % (42.8-82.8); PLATELET COUNT 288 10^3/uL (134-434); RBC 5.34 M/mm3 (4.00-5.60); RDW 13.5 % (11.9-15.9)
[2024-05-01 17:59] LABS: EPI CELLS 3 /uL (0-25.1); HYALINE CASTS 1 /uL (0-3.1); URINE APPEARANCE TURBID; URINE BACTERIA 3 /uL (0-1359); URINE BILIRUBIN NEGATIVE (NEGATIVE); URINE COLOR RED; URINE GLUCOSE (UA) NEGATIVE (NEGATIVE); URINE KETONE NEGATIVE (NEGATIVE); URINE LEUK ESTERASE 1+ (NEGATIVE); URINE NITRITE NEGATIVE (NEGATIVE); URINE PROTEIN 1+ (NEGATIVE); URINE RBC 29983 /uL (0-23.9); URINE UROBILINOGEN 0.2 mg/dL (0.2-1.0); URINE WBC 31 /uL (0-25.8)
[2024-05-01 18:15] LABS: POTASSIUM 4.6 mmol/L (3.5-5.1)
[2024-05-01 18:17] LABS: CALCIUM 9.8 mg/dL (8.5-10.1)
[2024-05-01 18:18] LABS: ALBUMIN 4.3 g/dl (3.4-5.0); BLOOD UREA NITROGEN 16.4 mg/dL (7-18)
[2024-05-01 18:21] LABS: CREATININE 1.4 mg/dL (0.55-1.3)
[2024-05-01 18:22] LABS: TOT PROT 7.5 g/dl (6.4-8.2)
[2024-05-01 18:23] LABS: BILIRUBIN,TOTAL 0.3 mg/dL (0.2-1)
== END 2024-05-01 19:03 | disposition home or self-care (01) ==
LOC: JER 16:01
DX: R33.9 Retention of urine, unspecified (principal); R31.0 Gross hematuria
CPT/HCPCS: 36415; 80053; 81003; 82550; 82553; 85025; 87086; 99283-25